=== PATIENT | male | born 1960 | race Caucasian/White ===

== ENCOUNTER 2021-11-05 10:01 | Emergency (ER) | payer BC, SELFPAY ==
[2021-11-05] VITALS (7 sets, daily range): BP systolic 102–128; BP diastolic 49–79; PULSE 78–86; RESP 14–24; TEMP 36.6; O2SAT 95–100; BMI 25.7
[2021-11-05 10:32] LABS: Basophils % 0.2 %; Hematocrit 47.7 % (42.0-52.0); Hemoglobin 16.8 g/dL (11.7-16.6); Lymphocytes # 1.3 10^3/uL (0.8-4.8); Lymphocytes % 13.7 %; Mean Corpuscular HGB Conc 35.2 g/dL (30.0-36.0); Mean Corpuscular Hemoglobin 32.7 pg (28.0-34.0); Mean Corpuscular Volume 92.8 fl (80-94); Mean Platelet Volume 9.9 fL (7.4-10.4); Monocytes # 0.3 10^3/uL (0.2-0.9); Monocytes % 3.3 %; Neutrophils # 7.56 10^3/uL (1.8-7.7); Neutrophils % 82.5 %; Nucleated Red Blood Cells % 0 %; Platelet Count 236 10^3/cmm (130-400); Red Blood Count 5.14 10^6/uL (4.1-5.3); Red Cell Distribution Width 12.3 % (12.1-15.1); White Blood Count 9.2 10^3/uL (4.0-10.0)
[2021-11-05] MEDS: sodium chloride 0.9% 1,000 ML 999 ML IV (10:36)
[2021-11-05] MEDS: morphine 4 mg/mL SDV 1 mL IVP ×2 (10:36→12:22)
[2021-11-05] MEDS: ondansetron 2 mg/ML SDV 2 mL 4 MG IVP (10:36)
--- NOTE | 2021-11-05 10:39 | ED_ITS ---
HPI - Abdominal Pain General: Chief Complaint: Abdominal Pain Stated Complaint: abd pain; hx of pancreas issues Time Seen by Provider: 11/05/21 10:04 History of Present Illness: Patient is a 61-year-old male comes to the ED with abdominal pain, nausea and vomiting. Symptoms started this morning at 2 AM. He woke up and felt pain all throughout his abdomen. He went in and had a bowel movement which he describes a small amount of diarrhea. Since the abdominal pain started he has had nausea and multiple episodes of emesis. Denies any fevers, chills, chest pain, shortness of breath, constipation, bladder symptoms. He describes having history of pancolitis and had a colonoscopy done in the last couple weeks. Only past abdominal surgery was a hernia repair. Associated Symptoms: Reports nausea and vomiting; Denies chills, constipation, diarrhea, dysuria, fever(s), hematochezia and hematuria Review of Systems Const: Denies: fever(s), chills or fatigue Eyes: Denies: change in vision or eye discomfort ENMT: Denies: throat pain, odynophagia, nasal discharge or nasal congestion Card: Denies: chest pain, palpitations, edema, swelling of feet/ankles, dyspnea on exertion or orthopnea Resp: Denies: dyspnea, productive cough or non-productive cough GI: Reports: abdominal pain, nausea and vomiting; Denies: diarrhea, constipation or hematochezia : Denies: flank pain, difficulty urinating, dysuria or hematuria Musc: Denies: neck pain, back pain or extremity swelling Skin/Breast: Denies: rash or new lesions Neuro: Denies: headache(s), numbness in extremities or weakness in extremities PFS ED PFSH: Medical History No pertinent family history Surgical History H/O hernia repair Physical Exam Const: COMMON NORMALS: patient oriented x3 and alert GENERAL APPEARANCE: cooperative HENMT: COMMON NORMALS: normocephalic HEAD & SCALP: normocephalic MOUTH: Normal oral and palatal mucosa present THROAT: posterior oropharynx normal and uvula midline Neck/C-Spine: COMMON NORMALS: supple GENERAL: Yes normal visual inspection Resp: COMMON NORMALS: normal respiratory effort, No retractions, No use of accessory muscles and clear to auscultation bilaterally AUSCULTATION: clear to auscultation bilaterally Cardio: COMMON NORMALS: regular rate, regular rhythm, S1 normal heart sound present, S2 normal heart sound present, No gallops present (Cardio), No clicks present (Cardio), No murmurs present (Cardio) and Peripheral pulses 2+ throughout RATE: regular rate RHYTHM: regular rhythm HEART SOUNDS: S1 normal heart sound present and S2 normal heart sound present PERIPHERAL PULSES: Peripheral pulses 2+ throughout GI: COMMON NORMALS: Normal to inspection, nondistended, normoactive bowel sounds present, Soft to palpation and no masses PALPATION: Yes Soft to palpation and Yes Tenderness to palpation present (GI) (Mild generalized tenderness throughout all 4 quadrants) : COMMON NORMALS: Yes no CVA tenderness BLADDER/KIDNEY EXAM: Yes no CVA tenderness Back/Pelvis: COMMON NORMALS: no CVA tenderness Extremity: COMMON NORMALS: normal to inspection Neuro: COMMON NORMALS: patient oriented x3 SENSORIUM/ORIENTATION: Yes alert GAIT: Yes Normal gait present Skin: GENERAL SKIN EXAM: dry skin Course Vital Signs: Vital signs: Vital Signs Temperature 97.9 F 11/05/21 10:11 Pulse Rate 85 11/05/21 13:22 Respiratory Rate 14 11/05/21 13:22 Blood Pressure 119/79 11/05/21 13:22 Pulse Oximetry 98 11/05/21 13:22 Oxygen Delivery Me thod 11/05/21 12:09 MDM - Abdominal Pain Medical Decision Making Patient is a 61-year-old male comes to the ED with abdominal pain, nausea and vomiting. Symptoms started this morning at 2 AM. He woke up and felt pain all throughout his abdomen. Endorses nausea and vomiting. Vitals are stable. Patient has generalized tenderness throughout his abdomen, but no localized tenderness. Rest of exam is benign. All labs were unremarkable. CT of abdomen pelvis showed no acute findings. Patient's symptoms were controlled with IV mo rphine and Zofran. He was stable for discharge home and diagnosed with abdominal pain. He was sent home with a prescription for Zofran and dicyclomine. Told to follow-up with his PCP in the next week for reevaluation. Return to ED precautions given. Patient is to agree with plan. Lab Data I reviewed the patient's lab results. : 11/05/21 10:27 11/05/21 10:27 Labs/Radiology: Radiology Impressions Abdomen/Pelvis CT 11/05/21 10:41 IMPRESSION: No acute process identified. COMMENTS: Consistent with the [employer]'s Incidental Findings Committee white paper (J Am Torsten Radiol 2018): Any incidental renal lesion less than 1 cm or classified as too small to characterize, or any incidental cystic renal lesion characterized as simple-appearing, is likely benign. No follow-up imaging is recommended for these lesions per consensus recommendations based on imaging criteria. Laboratory Results WBC 9.2 10^3/uL (4.0-10.0) 11/05/21 10:27 RBC 5.14 10^6/uL (4.1-5.3) 11/05/21 10:27 Hgb 16.8 g/dL (11.7-16.6) H 11/05/21 10:27 Hct 47.7 % (42.0-52.0) 11/05/21 10:27 MCV 92.8 fl (80-94) 11/05/21 10:27 MCH 32.7 pg (28.0-34.0) 11/05/21 10:27 MCHC 35.2 g/dL (30.0-36.0) 11/05/21 10:27 RDW 12.3 % (12.1-15.1) 11/05/21 10:27 Plt Count 236 10^3/cmm (130-400) 11/05/21 10:27 MPV 9.9 fL (7.4-10.4) 11/05/21 10:27 Neut % (Auto) 82.5 % 11/05/21 10:27 Lymph % (Auto) 13.7 % 11/05/21 10:27 [place] % (Auto) 3.3 % 11/05/21 10:27 Eos % (Auto) 0.0 % 11/05/21 10:27 Baso % (Auto) 0.2 % 11/05/21 10:27 Neut # (Auto) 7.56 10^3/uL (1.8-7.7) 11/05/21 10:27 Lymph # (Auto) 1.3 10^3/uL (0.8-4.8) 11/05/21 10:27 [place] # (Auto) 0.3 10^3/uL (0.2-0.9) 11/05/21 10:27 Eos # (Auto) 0.0 10^3/uL (0.0-0.8) 11/05/21 10:27 Baso # (Auto) 0.0 10^3/uL (0.0-0.1) 11/05/21 10:27 Nucleated RBC % (auto) 0 % 11/05/21 10:27 Nucleated RBCs # 0.0 /100WBC 11/05/21 10:27 Sodium 141 mmol/L (136-145) 11/05/21 10:27 Potassium 3.9 mmol/L (3.5-5.1) 11/05/21 10:27 Chloride 102 mmol/L (98-107) 11/05/21 10:27 Carbon Dioxide 20 mmol/L (22-29) L 11/05/21 10:27 Anion Gap 22.9 (5-19) H 11/05/21 10:27 BUN 13 mg/dL (8-23) 11/05/21 10:27 Creatinine 0.8 mg/dL (0.7-1.2) 11/05/21 10:27 GFR Calculation 97.6 mL/min (90-130) 11/05/21 10:27 Glucose 143 mg/dL (65-115) H 11/05/21 10:27 Calculated Osmolality 295 mOsm/kg (285-295) 11/05/21 10:27 Calcium 9.8 mg/dL (8.5-10.5) 11/05/21 10:27 Total Bilirubin 0.9 mg/dL (0.15-1.2) 11/05/21 10:27 AST 24 U/L (0-40) 11/05/21 10:27 ALT 21 U/L (0-41) 11/05/21 10:27 Alkaline Phosphatase 68 IU/L (40-130) 11/05/21 10:27 Total Protein 7.4 g/dL (6.6-8.7) 11/05/21 10:27 Albumin 4.8 g/dL (3.5-5.2) 11/05/21 10:27 Globulin 2.6 g/dL (1.3-4.6) 11/05/21 10:27 Lipase 23 U/L (13-60) 11/05/21 10:27 Urine Color Yellow (Yellow) 11/05/21 12:05 Urine Appearance Clear (CLEAR) 11/05/21 12:05 Urine pH 9 (5-7) H 11/05/21 12:05 Ur Specific [place] 1.010 (1.005-1.030) 11/05/21 12:05 Urine Protein Neg (Negative) 11/05/21 12:05 Urine Glucose (UA) Norm (Normal) 11/05/21 12:05 Urine Ketones 1+ (Negative) H 11/05/21 12:05 Urine Blood Neg (Negative) 11/05/21 12:05 Urine Nitrate Negative (Negative) 11/05/21 12:05 Urine Bilirubin Neg (Negative) 11/05/21 12:05 Prot Sulfosalicylic Acd Negative (Negative) 11/05/21 12:05 Urine Urobilinogen Norm mg/dL (Negative) 11/05/21 12:05 Ur Leukocyte Esterase Negative (Negative) 11/05/21 12:05 Discharge Plan Discharge Patient Disposition: Home Clinical Impression: Abdominal pain Qualifiers: Abdominal location: generalized Qualified Code(s): R10.84 - Generalized abdominal pain Condition: Stable Prescriptions: New dicyclomine 20 mg tablet 20 mg PO TID PRN (Reason: Abdominal pain and cramping) Qty: 20 0RF ondansetron 4 mg tablet,disintegrating 4 mg PO Q8H PRN (Reason: nausea and vomiting) Qty: 20 0RF Discharge Orders: Discharge ED (Routine); Ordered 11/05/21 Ordered By: Gabriel Sun Discharge Diet: Regular Discharge Activity: Increase activity as tolerated Patient Instructions: Abdominal Pain (ED) Activity Restrictions/Additional Instructions: Follow-up with medical provider as directed in the next 5 to 7 days ree valuation. Take medications as prescribed. Return to the ER or your medical provider if condition worsens. Please read and understand discharge instructions. Thank you for choosing [facility] for your healthcare needs today. Please realize this is an emergency room and that we are providing you with a medical screening exam and this may not be complete and all inclusive of all the testing and or work up that you may need to determine your ailment or severity of your illness. It is very important that you follow up as instructed or that you return to the Emergency Department should you have concerns or if your condition changes or worsens in any way. Coding Level of Care Code ED Veterinary Technician Assistant for [place] Fwd Exam Comprehensive
--- NOTE | 2021-11-05 10:41 | CTR_ITS ---
PROCEDURE INFORMATION: Exam: CT Abdomen And Pelvis With Contrast Exam date and time: 11/05/2021 11:21 AM Age: 61 years old Clinical indication: Nausea and vomiting; Abdominal pain; Generalized; Prior surgery; Surgery type: Hernia; Additional info: Abdominal pain, n/v TECHNIQUE: Imaging protocol: Computed tomography of the abdomen and pelvis with contrast. Total images: 1985 Radiation optimization: All CT scans at this facility use at least one of these dose optimization techniques: automated exposure control; mA and/or kV adjustment per patient size (includes targeted exams where dose is matched to clinical indication); or iterative reconstruction. Contrast material: OMNI 350; Contrast volume: 80 ml; Contrast route: INTRAVENOUS (IV); COMPARISON: No relevant prior studies available. RADIATION DOSE METRICS: Total DLP (mGy-cm): 764.08 FINDINGS: Diaphragm: A small hiatal hernia is present. Liver: 2.8 cm largest cyst noted in a liver that has multiple simple liver cysts. No further evaluation required. Gallbladder and bile ducts: Normal. No calcified stones. No ductal dilation. Pancreas: Normal. No ductal dilation. Spleen: Normal. No splenomegaly. Adrenal glands: Normal. No mass. Kidneys and ureters: 2.8 cm largest cyst noted in a right kidney that has multiple simple renal cysts. No further evaluation required. Stomach and bowel: There are a few colonic diverticuli present but no evidence of diverticulitis. Appendix: No evidence of appendicitis. Intraperitoneal space: Unremarkable. No free air. No significant fluid collection. Vasculature: Mild atherosclerotic disease is evident. Incidental phleboliths noted. Lymph nodes: Unremarkable. No enlarged lymph nodes. Urinary bladder: Unremarkable as visualized. Reproductive: Unremarkable as visualized. Bones/joints: Bridging osteophytes are seen spanning the SI joints bilaterally. Multilevel degenerative disc disease is noted with vacuum phenomenon. Osteophytes are noted extending from the vertebrae. No acute spinal pathology is detected. Soft tissues: Unremarkable. CT/CT abdomen pelvis w con* [id number] IMPRESSION: No acute process identified. COMMENTS: Consistent with the [employer]'s Incidental Findings Committee white paper (J Am Torsten Radiol 2018): Any incidental renal lesion less than 1 cm or classified as too small to characterize, or any incidental cystic renal lesion characterized as simple-appearing, is likely benign. No follow-up imaging is recommended for these lesions per consensus recommendations based on imaging criteria.
[2021-11-05 11:07] LABS: Alanine Aminotransferase 21 U/L (0-41); Albumin Level 4.8 g/dL (3.5-5.2); Alkaline Phosphatase 68 IU/L (40-130); Anion Gap 22.9 (5-19); Blood Urea Nitrogen 13 mg/dL (8-23); Calcium 9.8 mg/dL (8.5-10.5); Carbon Dioxide 20 mmol/L (22-29); Chloride 102 mmol/L (98-107); Globulin 2.6 g/dL (1.3-4.6); Glomerular Filtration Rate 97.6 mL/min (90-130); Glucose 143 mg/dL (65-115); Lipase 23 U/L (13-60); Osmolality Calculated 295 mOsm/kg (285-295); Potassium 3.9 mmol/L (3.5-5.1); Sodium 141 mmol/L (136-145); Total Bilirubin 0.9 mg/dL (0.15-1.2); Total Protein 7.4 g/dL (6.6-8.7)
[2021-11-05 11:08] LABS: Aspartate Amino Transferase 24 U/L (0-40)
[2021-11-05] MEDS: iohexol 350 mg/mL 100 mL Btl IV (11:24)
[2021-11-05 12:20] LABS: Add Urine Microscopic? NO; Charge for UA Resulting for Rev
[2021-11-05 12:36] LABS: Bilirubin Urine Neg (Negative); Blood Urine Neg (Negative); Glucose Urine UA Norm (Normal); Ketones Urine 1+ (Negative); Leukocyte Esterase Urine Negative (Negative); Nitrate Urine Negative (Negative); Protein Urine Neg (Negative); Sulfosalicylic Acid Urine Negative (Negative); Urine Appearance Clear (CLEAR); Urine Color Yellow (Yellow); Urobilinogen Urine Norm (Negative); pH Urine 9 (5-7)
== END 2021-11-05 13:24 | disposition home or self-care (01) ==
PROVIDERS: Emergency Provider Physician Assistant
DX: R10.84 Generalized abdominal pain (principal)
CPT/HCPCS: 74177; 80053; 81003; 83690; 85025; 96361; 96374; 96375; 96376; 99285; J2270; J2405; J7030; Q9967